=== PATIENT | male | born 1960 ===

== ENCOUNTER → 2017-10-05 | Outpatient (CLI) | payer OTHER ==
[~2017-10-05] MED LIST: CIPRO500 MG PO; FLAGYL500MG PO; INTESTINEX1 CA1 PO; Protonix PO; TAMS0.4C PO
== END | disposition home or self-care (01) ==
LOC: TOM 08:48
DX: R97.8 Other abnormal tumor markers (principal)

== ENCOUNTER 2018-06-20 08:33 | Day surgery (SDC) | payer OTHER | END 2018-06-20 13:30 | disposition home or self-care (01) | LOC: AMB-ENDOS 08:33 | DX: D12.4 Benign neoplasm of descending colon (principal); D12.8 Benign neoplasm of rectum; K64.8 Other hemorrhoids; Z12.11 Encounter for screening for malignant neoplasm of colon ==

== ENCOUNTER 2018-07-20 07:42 | Outpatient (CLI) | payer OTHER | END 2018-07-20 07:50 | disposition home or self-care (01) | LOC: LAB 07:42 | DX: R97.20 Elevated prostate specific antigen [PSA] (principal); N39.0 Urinary tract infection, site not specified ==

== ENCOUNTER 2018-08-16 17:49 | Emergency (ER) | payer OTHER ==
[~2018-08-16] VITALS: Ht 172.7 cm; Wt 59.0 kg
[2018-08-16] MEDS ORDERED: INTESTINEX680 M1 PO (23:44)
[2018-08-16] MEDS ORDERED: DIPHENOXYLATE-1 EACH PO (23:44)
[2018-08-16] MEDS ORDERED: PEPCID AC20 MG PO (23:44)
[2018-08-16] MEDS ORDERED: LEVSIN/SL0.125 MG SL (23:44)
== END 2018-08-16 23:57 | disposition home or self-care (01) ==
LOC: ER 17:49
DX: K52.9 Noninfective gastroenteritis and colitis, unspecified (principal); E86.0 Dehydration

== ENCOUNTER 2019-01-27 12:32 | Emergency (ER) | payer OTHER ==
[~2019-01-27] VITALS: Ht 172.7 cm; Wt 63.5 kg
[~2019-01-27 12:32] MED LIST changes: +DIPHENOXYLATE-1 EACH PO; +INTESTINEX680 M1 PO; +LEVSIN/SL0.125 MG SL; +PEPCID AC20 MG PO
== END 2019-01-27 15:50 | disposition home or self-care (01) ==
LOC: ER 12:32 → CPU-OBS 13:11 → ER 15:50
DX: R07.89 Other chest pain (principal); R51 Headache; M79.18 Myalgia, other site
CPT/HCPCS: G0378; G0379; 93005

== ENCOUNTER 2021-07-24 10:53 | Emergency (ER) | payer OTHER ==
[~2021-07-24] VITALS: Ht 172.7 cm; Wt 59.0 kg
== END 2021-07-24 13:20 ==
LOC: ER 10:53
DX: S89.82XA Other specified injuries of left lower leg, initial encounter (principal); X58.XXXA Exposure to other specified factors, initial encounter; Y93.9 Activity, unspecified; M79.605 Pain in left leg

== ENCOUNTER 2022-01-25 07:12 | Outpatient (CLI) | payer OTHER | END 2022-01-25 07:25 | disposition home or self-care (01) | LOC: TOM 07:12 | DX: R10.9 Unspecified abdominal pain (principal); R10.2 Pelvic and perineal pain; R63.4 Abnormal weight loss; Z72.0 Tobacco use; Z87.891 Personal history of nicotine dependence ==

== ENCOUNTER 2023-01-04 19:21 | Emergency (ER) | payer OTHER ==
[~2023-01-04] VITALS: Ht 167.6 cm; Wt 81.6 kg
== END 2023-01-04 23:14 | disposition home or self-care (01) ==
LOC: ER 19:21
DX: J06.9 Acute upper respiratory infection, unspecified (principal); Z20.822 Contact with and (suspected) exposure to COVID-19